=== PATIENT | male | born 1995 | race Caucasian/White ===

== ENCOUNTER → 2019-11-24 11:53 | Outpatient (CLI) | payer OTHER, SELFPAY ==
[2019-11-25 02:36] LABS: COVID19 Sendout Not Detected (Not Detect)
== END ==
PROVIDERS: PCP General Practice; Visit Provider Family Medicine
DX: Z11.59 Encounter for screening for other viral diseases (principal)
CPT/HCPCS: 87635

== ENCOUNTER 2019-11-30 06:39 | Day surgery (SDC) | payer OTHER, SELFPAY ==
[2019-11-08 12:48] VITALS: BMI 22.5
[2019-11-30] VITALS (10 sets, daily range): BP systolic 105–131; BP diastolic 61–78; PULSE 59–105; RESP 12–20; TEMP 36.1–36.4; O2SAT 94–99; BMI 22.5
[2019-11-30] MEDS: LACTATED RINGERS 1,000 ML 42 ML IV ×2 (06:58→10:13)
--- NOTE | 2019-11-30 07:31 | PM.HP.1 ---
History of Present Illness History of Present Illness Date Patient Seen: 11/30/19 Time Patient Seen: 07:32 Chief complaint: [id number] LAP POSS OPEN LIH, POSS RIH Narrative: This is a 24 yo man with family history of testicular cancer (patient's brother) who presents with a five month history of a left groin bulge. He notices the bulge more with coughing or straining. He denies any symptoms of incarceration or obstruction. He denies severe pain, and denies right side symptoms. He has had increasing pain and enlarging of the left groin bulge since I saw him in August. Due to the risk of incarceration and progression of his hernia we have recommended going ahead with surgery. He was covid tested and negative. No symptoms of cough, cold, shortness of breath, fever. He says he feels healthy and well. ROS: Thirteen system review is otherwise negative other than as mentioned below and in HPI. PE: GENERAL: Well groomed and cooperative. Appears stated age. Answers questions promptly and appropriately. Vital signs noted. HENT: Normocephalic, atraumatic. Hearing intact. Wearing a surgical mask. EYES: Conjunctiva pink, sclera white, no periorbital swelling. CARDIOVASCULAR: Regular rate. No pedal edema. RESPIRATORY: Non-tachypneic, breathing comfortably on room air. GASTROINTESTINAL: Abdomen soft and non-distended GENITALURINARY: No flank tenderness. Reducible left inguinal hernia; right inguinal floor laxity without clear hearnia defect MUSCULOSKELETAL: Equal tone and mass bilaterally. SKIN: Warm, dry, soft, appropriate color for ethnicity. No other lesions, rashes, or wounds. NEURO: Alert and Oriented X 3. No gross sensory deficits, or cognitive issues. PSYCH: Appropriate mood and affect, normal intellect Patient History Family & Social History Family History Brother Testicular cancer Grandmother Breast cancer Social History: household members spouse Tobacco & Substance use: Smoking Status Never smoker alcohol intake never Substance Use Type does not use Meds Home Medications and Allergies Home Medications Medication Instructions Recorded Confirmed Type ibuprofen 400 mg tablet 400 mg PO TID 09/02/19 11/30/19 History Allergies Allergy/AdvReac Type Severity Reaction Status Date / Time No Known Drug Allergies Allergy Verified 11/30/19 06:52 Exam Vital Signs (past 8 hours): - 11/30/19 07:12 Temperature 97.6 F Pulse Rate 59 L Respiratory Rate 20 Blood Pressure 128/77 Pulse Oximetry 99 Oxygen Delivery Method Room Air Assessment & Plan Assessment & Plan narrative: I reviewed my entire discussion with the patient regarding his symptoms and exam findings. Risk of bleeding, infection, damage to nearby structures, need for open surgery, chronic pain, testicular atrophy, retrograde ejaculation, urinary retention, abnormal urination, sterility, hernia recurrence were discussed. The patient desires to proceed with hernia repair. We discussed the options of open and laparoscopic repair. The patient prefers laparoscopic repair, and would like to have the right side repaired as well if a right side hernia is seen. 45 minutes were spent face to face with the patient. More than 50% of the time was spent in counseling and co-ordination of care regarding risks and benefits of surgery, surgical options, follow up expectations, recovery time. Plan: Proceed to OR for laparoscopic, possible open left, possible right inguinal hernia repair with mesh COVID-19 COVID-19 status: Negative Time Spent With Patient Time with patient: 25 - 35 minutes Quality VTE Deep Vein Thrombosis/Pulmonary Embolism Present on Admission: No
[2019-11-30] MEDS: CEFAZOLIN 2 GM/100 ML FROZ.PIGGY IV (07:44)
[2019-11-30] MEDS: BUPIVACAINE 0.25% W/ EPI 30 ML VIAL 60 ML INJ (08:27)
--- NOTE | 2019-11-30 10:58 | PM.OP.1 ---
Operative Date/Time/Diagnoses Date of procedure: 11/30/19 Time of procedure: 10:58 Pre-op diagnosis: Left, possible right inguinal hernia Post-op diagnosis: other (Bilateral indirect inguinal hernias) Procedure & Clinicians Procedure: Laparoscopic repair of bilateral inguinal hernias with BARD 3-D max mesh Same procedure as scheduled: Yes Indications: This is a 24 yo man who has had a symptomatic left inguinal hernia, and a weakness in the right inguinal canal on exam without right groin symptoms. Surgeon: Rachelle Matos Click Yes if Unassisted: Yes Anesthesia Type: General Operative Notes Findings: Deep bilateral indirect inguinal hernias; left side very scarred in Specimen(s): none sent Prosthetic devices, grafts, tissues, transplants, or devices: Two x BARD 3-D Max medium size mesh, anatomical left side and anatomical right side Estimated Blood Loss (mL): 5 Blood products transfused: none Procedure in detail: Local injected before dissection began; total of 30mL used on each side; 10mL used in port sites Left side done first, flap very stuck and scarred in; deep narrow pelvis; mesh secured to pubic tubercle, roof, and lateral positions; closed with secure strap and absorbatack; Right side done the same way; less scarred in. Umbilical port closed with 0 Vicryl transabdominal sutures with mir raul x 2 The patient was brought into the operating room and placed supine on the OR table. Sequential compression devices were placed on both legs and turned on. Appropriate perioperative antibiotics were given prior to the start of surgery. General anesthesia was induced the patient was intubated. A Keyes catheter was placed sterilely in the bladder. The abdomen was prepped and draped in sterile fashion. Surgical time-out was conducted. Local anesthetic was injected under the skin just superior to the umbilicus and a 5 mm vertical incision was made at this site. The umbilical stalk was grasped with a Bobby and elevated. A Veress needle was passed through the fascia into proper position. The position was tested with a saline drop test which was appropriate for intra-abdominal Veress needle placement. The abdomen was then insufflated in the usual fashion. Once insufflated to 15 mm Hg the Veress needle was removed and a 5 mm optical trocar was placed under direct vision using a 5 mm 30 degree scope. Once the camera was inside the abdomen I took a look around. There was no injury from port placement. Two additional ports were placed in a similar fashion in the right and left mid clavicular line at the level of the umbilicus, one handbreadth lateral to the umbilicus. The umbilical port was upsized to a 10mm port. Attention was turned to the pelvis, and both inguinal regions were evaluated. On the left side, the symptomatic side, there was a deep indirect hernia defect seen. On the right side there was a deep indirect hernia defect seen as well. Beginning on the left side local anesthetic was in the infiltrated into the abdominal wall using 0.25% Marcaine with epi, in the region of the expected peritoneal incision. Metzenbaum scissors attached to cautery were then used to incise the peritoneum transversely from the midline laterally to the ASIS, 10 cm superior to the inguinal hernia defect. The peritoneal flap was developed down to the inguinal canal. When I reached the indirect defect, I found there was quite a bit of chronic scarring of the peritoneum. It took quite a bit of tedious dissection to free the hernia sac from the inguinal canal and the indirect defect.. Once the flap had been fully developed and the cord structures were completely exposed, and the hernia defect had been fully evaluated, I then exposed the pubic tubercle and push down the bladder so that there was space for good mesh placement. A median size 3DMax macro porous mesh was then brought into the field. I placed it through the 10 mm port and positioned it within the surgical defect covering the direct, indirect, and femoral space with 5 cm overlap in each direction. I then secured the mesh to the pubic tubercle in 2 locations using dissolvable surgical tacks. I then secured the mesh to the abdominal wall at its superior edge, far away from the triangle of doom and the triangle of pain. These tacks were placed avoiding the epigastric vessels as well. Once the mesh was secured in place I brought up the peritoneal flap. There was no clam shelling or bending of the mesh when the peritoneal flap was brought up. I then secured the peritoneum up to the abdominal wall using the same surgical tacker, with dissolvable tacks. There was no gapping of the peritoneal flap or exposed mesh. Attention was then turned to the right side. Local anesthetic was in the infiltrated into the abdominal wall using 0.25% Marcaine with epi, in the region of the expected peritoneal incision. Metzenbaum scissors attached to cautery were then used to incise the peritoneum transversely from the midline laterally to the ASIS, 10 cm superior to the inguinal hernia defect. The peritoneal flap was developed down to the inguinal canal. When I reached the defect I found a moderate indirect inguinal hernia, with hernia sac attached to the cord structures. These were carefully dissected free from the sac, and the flap was completely dissected out. Once the flap had been fully developed and the cord structures were completely exposed, and the hernia defect had been fully evaluated, I then exposed the pubic tubercle and push down the bladder so that there was space for good mesh placement. A medium size 3DMax macro porous mesh was then brought into the field. I placed it through the 10 mm port and positioned it within the surgical defect covering the direct, indirect, and femoral space with 5 cm overlap in each direction. I then secured the mesh to the pubic tubercle in 2 locations using dissolvable surgical tacks. I then secured the mesh to the abdominal wall at its superior edge, far away from the triangle of doom and the triangle of pain. These tacks were placed avoiding the epigastric vessels as well. Once the mesh was secured in place I brought up the peritoneal flap. There was no clam shelling or bending of the mesh when the peritoneal flap was brought up. I then secured the peritoneum up to the abdominal wall using the same surgical tacker, with dissolvable tacks. There was no gapping of the peritoneal flap or exposed mesh. At this point the mesh was well positioned, secured, and well covered. There was no exposed mesh, no bleeding, and the peritoneal flaps were in good position. I then infiltrated the abdominal wall in the area of dissection with an additional 20 mL of local anesthetic, for a total of 70 mL of 0.25% Marcaine with epi for the entire case. At this point the umbilical port site was closed with 0 Vicryl suture in the fascia using a Mir-Raul suture Passer. Insufflation was then removed from the abdomen, and the umbilical port site was closed with 3-0 Vicryl in the subcutaneous layers, and 4 Monocryl in the skin. The other 2 port sites were closed with 4 Monocryl in the skin. Each port site was sealed with Dermabond. Local anesthetic was given at each of the port sites and in the fascia. This concluded the procedure. At this point the needle sponge and instrument counts were correct. The patient was awakened from anesthesia and extubated. The Keyes catheter was removed, and the testicles were brought down to ensure they were in proper position. The patient was transferred to the postanesthesia care unit in stable condition. Complications: none Post-operative Condition: stable Disposition: PACU
[2019-11-30] MEDS: KETOROLAC 30 MG/ML VIAL IV (11:13)
[2019-11-30] MEDS: fentaNYL 100 MCG/2 ML INJ IV ×2 (11:19→11:27)
[2019-11-30] MEDS: OXYCODONE/ACETAMINOPHEN 5/325 TABLET 1 TAB PO (11:40)
== END 2019-11-30 12:23 | disposition home or self-care (01) ==
PROVIDERS: PCP General Practice; Referring Provider Surgery; Visit Provider Surgery
PROC: 0YQ64ZZ Repair Left Inguinal Region, Percutaneous Endoscopic Approach (ICD-10-PCS; CPT 49650; principal; 2019-11-30 07:45)
DX: K40.20 Bilateral inguinal hernia, without obstruction or gangrene, not specified as recurrent (principal)
CPT/HCPCS: 49650; C1781; J0690; J1100; J1170; J1885; J2250; J2405; J2704; J3010

== ENCOUNTER 2025-06-04 17:16 | Emergency (ER) | payer OTHER, SELFPAY ==
[2025-06-04 17:29] VITALS: BP 134/73; PULSE 92; RESP 16; TEMP 36.6; O2SAT 96; BMI 21.7
--- NOTE | 2025-06-04 17:36 | DI.RAD.S_ITS ---
PROCEDURE: XR FINGER RT MIN 2V INDICATIONS: injury TECHNIQUE: AP hand, 2 views of the 5th finger(s) acquired. COMPARISON: None. FINDINGS: Bones: Comminuted distal 5th metacarpal fracture with slight apex dorsal angulation. Soft tissues: No suspicious soft tissue calcifications. Lateral hand soft tissue edema. IMPRESSION: Comminuted distal 5th metacarpal fracture. Dictated by: Vincent Medrano M.D. on 06/04/2025 at 17:34 Approved by: Vincent Medrano M.D. on 06/04/2025 at 17:35
[2025-06-04 20:25] VITALS: BP 129/75; PULSE 62; RESP 16; O2SAT 98
--- NOTE | 2025-06-04 20:31 | ED_ITS ---
HPI - Extremity Injury (Upper) General Chief Complaint: Extremity Injury, Upper Stated Complaint: RT Pinky finger injury Time Seen by Provider: 06/04/25 18:26 Source: patient Mode of arrival: Family Vehicle History of Present Illness HPI narrative: 30y M presents with right hand injury working on his car he got mad and hit his hand against the floor. He is right-handed dominant and unable to completely flex his right finger or straighten it out. Other than what is stated 14 point review of system is negative. Related Data Home Medications ?Medication ?Instructions ?Recorded ?Confirmed ibuprofen 400 mg tablet 400 mg PO TID 09/02/1912/14 Previous Rx's ?Medication ?Instructions ?Recorded oxycodone 5 mg tablet 5 mg PO Q4H PRN post operati ve 11/30/19 pain #30 tabs hydrocodone 5 mg-acetaminophen 325 1 tab PO Q4-6H PRN pain #20 tabs 06/04/25 mg tablet Allergies Allergy/AdvReac Type Severity Reaction Status Date / Time No Known Drug Allergies Allergy Verified 06/04/25 17:29 Review of Systems Review of Systems ROS Unobtainable: All systems reviewed & are unremarkable except as noted in HPI and below Patient History Family History Brother Testicular cancer Grandmother Breast cancer Social History marital status: household members: spouse occupational status: employed alcohol intake: never substance use type: does not use Smoking Status: Current every day smoker tobacco type: vaping Exam Narrative Exam Narrative: GENERAL: [30] year old patient appears stated age. Well-developed patient, in mild distress. HEAD: Atraumatic. Normocephalic. EYES: Pupils equal round and reactive. Extraocular motions intact. No scleral i cterus. No injection or drainage. EXTREMITIES: R 5th digit unable to completely flex MP and DIP joint +2 rad pulse cap refill <2secs BACK: Nontender without deformity or crepitance. No flank tenderness. NEURO: AOx3. SKIN: No rash or erythema of visible areas Initial Vital Signs Initial Vital Signs: Vital Signs Temperature 97.9 F 06/04/25 17:29 Pulse Rate 92 H 06/04/25 17:29 Respiratory Rate 16 06/04/25 17:29 Blood Pressure 134/73 06/04/25 17:29 Pulse Oximetry 96 06/04/25 17:29 Oxygen Delivery Method Room Air 06/04/25 17:29 Course Orders Ordered: ED Orders 06/04/25 17:36 XR hand RT min 3V Stat Vital Signs Vital signs: Vital Signs - 8 hr 06/04/25 17:29 06/04/25 20:25 Temperature 97.9 F Pulse Rate 92 H 62 Respiratory Rate 16 16 Blood Pressure 134/73 129/75 Pulse Oximetry 96 98 Oxygen Delivery Method Room Air Room Air MDM - Extremity Injury (Upper) Imaging Data Extremity x-ray #1: Radiologist's Impression: [address] [address] XRay Report Signed Patient: Bienvenido Alonso MR#: [id number] : 1995 Acct:[id number] Age/Sex: 30 / M Date of Service: 06/04/25 Loc: ED Accession Number: [id number] Procedure: XR hand RT min 3V Ordering Provider: Leticia Painting D.O. PROCEDURE: XR FINGER RT MIN 2V INDICATIONS: injury TECHNIQUE: AP hand, 2 views of the 5th finger(s) acquired. COMPARISON: None. FINDINGS: Bones: Comminuted distal 5th metacarpal fracture with slight apex dorsal angulation. Soft tissues: No suspicious soft tissue calcifications. Lateral hand soft tissue edema. IMPRESSION: Comminuted distal 5th metacarpal fracture. Dictated by: Vincent Medrano M.D. on 06/04/2025 at 17:34 Approved by: Vincent Medrano M.D. on 06/04/2025 at 17:35 [facility] Narrative Medical decision making narrative: All lab work, vital signs, nurse triage note, medication list, previous ER visits, and all imaging studies reviewed. x-ray shows comminuted distal 5th metacarpal fracture. patient placed in splint given [place] here and updated tetanus. Pt sent home on [facility] rx and [facility] referral placed. Differential diagnosis fracture dislocation contusion Discharge Plan Departure Patient Disposition: Home Clinical Impression: Fracture of metacarpal Instructions: DI for Boxer's Fracture Activity Restrictions/Additional Instructions: Return with new or worsening symptoms take medicines as directed. Follow up with [place] orthopedic referral. Prescriptions: New hydrocodone-acetaminophen 5-325 mg tablet 1 tab PO Q4-6H PRN (Reason: pain) Qty: 20 0RF No Action ibuprofen 400 mg tablet 400 mg PO TID oxycodone 5 mg tablet 5 mg PO Q4H PRN (Reason: post operative pain) Qty: 30 0RF Referrals: Vincent Champagne DO [Primary Care Provider, Medical] Stand Alone Forms: Patient Portal/API
[2025-06-04] MEDS: TET,DIPH,PERTUSS(ACELL),VAC/PF 0.5 ML SYRINGE IM (20:52)
[2025-06-04] MEDS: IBUPROFEN 400 MG TABLET 800 MG PO (20:52)
[2025-06-04 21:48] VITALS: BP 128/78; PULSE 62; RESP 20; O2SAT 99
== END 2025-06-04 21:51 | disposition home or self-care (01) ==
PROVIDERS: Emergency Provider Family Medicine; PCP General Practice
DX: S62.306A Unspecified fracture of fifth metacarpal bone, right hand, initial encounter for closed fracture (principal); X58.XXXA Exposure to other specified factors, initial encounter; Z23 Encounter for immunization
CPT/HCPCS: 29125; 73130; 90471; 99284; 90715